=== PATIENT | female | born 1960 | race Caucasian/White ===

== ENCOUNTER 2024-07-03 17:26 | Emergency (ER) | payer OTHER ==
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
--- NOTE | 2024-07-03 18:14 | RAD REPORT ---
EXAM DESCRIPTION: CTStone Protocol - 07/03/2024 5:42 pm CLINICAL HISTORY: Abdominal distention;Flank pain COMPARISON: No comparisons TECHNIQUE: CT of the abdomen and pelvis was performed. All CT scans are performed using dose optimization technique as appropriate and may include automated exposure control or mA/KV adjustment according to patient size. FINDINGS: Lower chest: Mild circumferential thickened distal esophagus which could reflect esophagit is. Liver: Low-density left hepatic lobe lesion has benign imaging features. Other too small to character ize low-density liver lesions noted . Biliary: No biliary ductal dilatation. Stomach: No significant focal abnormality. Duodenum: No significant focal abnormality. Pancreas: No significant abnormality. Spleen: No significant abnormality. Adrenal: No suspicious lesions. Kidney/ureter: Mild right-sided hydroureteronephrosis with 4 mm stone at the right UVJ. Bilateral jesse al calculi also noted. Retroperitoneum: No retroperitoneal adenopathy. Vascular: No aneurysm. Atherosclerosis . Bowel: No significant focal abnormality. Appendectomy. Peritoneum: No ascites or free air. Bladder: Grossly unremarkable. Reproductive: No adnexal masses. Bones: No acute fracture. Grade 1 anterolisthesis of L4 on L5 . Other: n/a IMPRESSION: Mild right-sided hydroureteronephrosis secondary to a 4 mm stone at the right UVJ. Bilat eral renal calculi present.
[2024-07-03] MEDS ORDERED: ONDANSETRON 4 MG/2 ML VIAL ONE (18:27)
[2024-07-03] MEDS ORDERED: CEFTRIAXONE 1000 MG/VIAL ONE (18:27)
[2024-07-03] MEDS ORDERED: MORPHINE 4 MG/ML SYR ONE ×2 (18:27→20:06)
[2024-07-03] MEDS ORDERED: KETOROLAC 30 MG/ML INJ ONE (18:27)
[2024-07-03] MEDS ORDERED: FAMOTIDINE 20 MG/2 ML VIAL IV ONE (18:27)
[2024-07-03] MEDS ORDERED: NA CHLORIDE 0.9% 1,000 ML ONE ×2 (18:27→19:27)
[2024-07-03 19:06] LABS: Absolute Monocytes 0.2 K/uL (0.1-1.3); Absolute Neutrophil 7.3 K/uL (1.8-8.0); Basophils % 0.2 % (0-1.3); Eosinophils % 0.3 % (0-4.4); Hematocrit 42.4 % (36.0-45.0); Hemoglobin 14.2 g/dL (12.0-15.0); MCH 31.6 pg (27.0-35.0); MCHC 33.6 g/dL (32.0-36.0); MPV 6.8 fL (7.6-11.3); Monocytes % 2.7 % (3.3-12.3); Neutrophils % 84.8 % (41.7-73.7); Nucleated Red Blood Cells % 0.2 % (0-0); Platelets 303 thou/uL (152-406); RBC Red Blood Cell Count 4.51 M/uL (3.86-4.86); Red Cell Distribution Width 13.1 % (12.1-15.2)
[2024-07-03 19:18] LABS: Albumin 3.8 g/dL (3.4-5.0); Anion Gap 9.9 mEq/L (5.0-15.0); Bilirubin Total 1.3 mg/dL (0.2-1.0); Potassium 3.9 mEq/L (3.5-5.1); Protein, Total 7.8 g/dL (6.4-8.2)
[2024-07-03 19:19] LABS: Specific Gravity 1.014 (1.005-1.030); Sqamous Epithelial <5 /HPF (None Seen); Urine Bacteria None Seen /HPF (<20); Urine Bilirubin NEGATIVE (Negative); Urine Blood 2+ (Negative); Urine Clarity Extremely Turbid (Clear); Urine Color Light-Yellow (Yellow); Urine Culture Reflex Order NOT NEEDED; Urine Glucose NEGATIVE (Negative); Urine Ketones 1+ (Negative); Urine Microscopic Reflex YN ORDER UMIC; Urine Mucus Slight /HPF (None Seen); Urine Nitrite NEGATIVE (Negative); Urine Protein NEGATIVE (Negative); Urine RBC >50 /HPF (None Seen); Urine Urobilinogen Normal (Normal); Urine WBC None Seen /HPF (<5); Urine pH 7.5 (5.0-7.0)
[2024-07-03] MEDS ORDERED: TAMSULOSIN 0.4 MG SR CAP ONE (19:27)
[2024-07-03] MEDS ORDERED: CIPROFLOXACIN HCL 500 MG TAB ONE (19:32)
--- NOTE | 2024-07-03 20:39 | ER ---
Nurse's Notes [facility] Name: Melany Ricketts Age: 63 yrs Sex: Female : 1960 Arrival Date: 07/03/2024 Time: 17:26 Bed 13 Private MD: Diagnosis: Hydronephrosis with renal and ureteral calculous obstruction-4 MM RIGHT;UTI/ Urinary tract infection, site not specified Presentation: 07/03 18:01 Chief complaint: EMS states: RLQ pain, N/V and difficulty urinating that started today, ph states that she last urinated at 10 or 11 am, " Since then only a little bit will come out.". Coronavirus screen: Vaccine status: Patient reports being unvaccinated. Ebola Screen: No symptoms or risks identified at this time. Initial Sepsis Screen: Does the patient meet any 2 criteria? No. Patient's initial sepsis screen is negative. Does the patient have a suspected source of infection? No. Patient's initial sepsis screen is negative. Risk Assessment: Do you want to hurt yourself or someone else? Patient reports no desire to harm self or others. Onset of symptoms was July 03, 2024. 18:01 Method Of Arrival: EMS: [facility] 18:01 Acuity: JAVI 3 ph Triage Assessment: 18:03 General: Appears in no apparent distress. Behavior is cooperative, crying. Pain: ph Complains of pain in right lower quadrant. Neuro: Level of Consciousness is awake, alert, obeys commands, Oriented to person, place, time, situation. GI: Reports lower abdominal pain, nausea, vomiting. : Reports inability to void. Historical: - Allergies: 18:03 No Known Allergies; ph - Immunization history:: Adult Immunizations unknown. - Infectious Disease History:: Denies. - Social history:: Smoking status: Patient denies any tobacco usage or history of. Screenin:57 [facility] ED Fall Risk Assessment (Adult) History of falling in the last 3 months, ph including since admission No falls in past 3 months (0 pts) Confusion or Disorientation No (0 pts) Intoxicated or Sedated No (0 pts) Impaired Gait No (0 pts) Mobility Assist Device Used No (0 pt) Altered Elimination No (0 pt) Score/Fall Risk Level 0 - 2 = Low Risk Oriented to surroundings, Maintained a safe environment, Hourly rounding (assess needs \\T\\ fall precautionary measures) done. Abuse screen: Denies threats or abuse. Denies injuries from another. Nutritional screening: No deficits noted. Tuberculosis screening: No symptoms or risk factors identified. Assessment: 18:30 General: Appears in no apparent distress. uncomfortable, Behavior is cooperative, ph anxious, crying. Pain: Complains of pain in right lower quadrant. Neuro: Level of Consciousness is awake, alert, obeys commands, Oriented to person, place, time, situation. Cardiovascular: Capillary refill < 3 seconds in bilateral fingers Patient's skin is warm and dry. GI: Reports lower abdominal pain, nausea, vomiting. : Reports inability to void, pain in right lower quadrant(s). 19:20 General: Appears in no apparent distress. uncomfortable, Behavior is calm, cooperative. al5 Pain: Complains of pain in right lower quadrant. Neuro: Level of Consciousness is awake, alert, obeys commands, Oriented to person, place, time, situation. Cardiovascular: Patient's skin is warm and dry. Respiratory: Airway is patent Respiratory effort is even, unlabored, Respiratory pattern is regular, symmetrical. GI: Abdomen is non-distended, Reports lower abdominal pain. : Reports pain in right lower quadrant(s). EENT: No signs and/or symptoms were reported regarding the EENT system. Derm: No signs and/or symptoms reported regarding the dermatologic system. Derm: Skin is intact, Skin is pink, warm \\T\\ dry. normal. Musculoskeletal: No deficits noted. No signs and/or symptoms reported regarding the musculoskeletal system. 20:08 Reassessment: Patient appears in no apparent distress at this time. No changes from al5 previously documented assessment. Patient and/or family updated on plan of care and expected duration. Pain level reassessed. Patient is alert, oriented x 3, equal unlabored respirations, skin warm/dry/pink. pain improved initially, but came back 10/10. 20:30 Reassessment: Patient appears in no apparent distress at this time. Patient is alert, al5 oriented x 3, equal unlabored respirations, skin warm/dry/pink. pain better post morphine administeration. 20:48 General: pending discharge after fluids complete.. al5 Vital Signs: 18:01 BP 166 / 68; Pulse 84; Resp 18; Temp 97.8; Pulse Ox 99% on R/A; ph 18:58 BP 117 / 62; Pulse 88; Resp 18; Pulse Ox 98% on R/A; ph 19:00 BP 123 / 73; Pulse 79; Resp 18; Pulse Ox 100% on R/A; al5 20:00 BP 139 / 88; Pulse 92; Resp 18; Pulse Ox 100% on R/A; al5 21:00 BP 152 / 94; Pulse 87; Resp 18; Pulse Ox 99% on R/A; al5 ED Course: 17:27 Patient arrived in ED. bd 17:28 Gary Hermosillo MD is Attending Physician. bacilio 17:44 CT Stone Protocol In Process Unspecified. EDMS 18:01 She Zafar, RN is Primary Nurse. ph 18:03 Triage completed. ph 18:03 Arm band placed on Patient placed in an exam room, on a stretcher. ph 18:45 Initial lab(s) drawn, by tn, sent to lab. Urine collected: clean catch specimen, ph cloudy. Inserted saline lock: 22 gauge in right antecubital area, using aseptic technique. Blood collected. Flushed with 10 mL NS. 18:57 Patient has correct armband on for positive identification. Bed in low position. Call ph light in reach. Side rails up X2. Pulse ox on. NIBP on. Door closed. Noise minimized. Warm blanket given. Pillow given. 19:44 Primary Nurse role handed off by She Zafar, RN al5 19:44 Malka Steve, ADDIS is Primary Nurse. al5 20:39 Wade Leon MD is Referral Physician. [facility] 21:37 Provided Education on: medications, discharge follow up. al5 21:37 No provider procedures requiring assistance completed. IV discontinued, intact, al5 bleeding controlled, No redness/swelling at site. Pressure dressing applied. Administered Medications: 18:45 Drug: NS 0.9% IV 1000 ml IV at 1 bolus Per protocol; 1000 mL bolus Route: IV; Rate: 1 ph bolus; Site: right antecubital; 21:43 Follow up: Response: No adverse reaction; IV Status: Completed infusion; IV Intake: al5 1000ml 18:45 Drug: Famotidine IVP 20 mg IVP once; dilute with 10 mL 0.9% NaCl; give over 2 minutes ph Route: IVP; Site: right antecubital; 19:12 Follow up: Response: No adverse reaction ph 18:45 Drug: Ondansetron IVP 4 mg IVP once; over 2 minutes Route: IVP; Site: right antecubital;ph 19:12 Follow up: Response: No adverse reaction ph 18:45 Drug: morphine IVP or IV 4 mg IVP once over 4 mins Route: IVP; Infused Over: 4 mins; ph Site: right antecubital; 19:13 Follow up: Response: No adverse reaction ph 18:45 Drug: Rocephin IV 1 grams IV at per protocol once; Given slow IV push per pharmacy ph instructions Route: IV; Rate: per protocol; Site: right antecubital; 18:45 Drug: Ketorolac IVP 30 mg IVP once Route: IVP; Site: right antecubital; ph 19:12 Follow up: Response: No adverse reaction ph 19:41 Drug: NS 0.9% IV 1000 ml IV at 1 bolus Per protocol; 1000 mL bolus Route: IV; Rate: 1 al5 bolus; Site: right antecubital; 21:42 Follow up: IV Status: Completed infusion; IV Intake: 1000ml al5 19:42 Drug: Ciprofloxacin PO 500 mg PO once Route: PO; al5 20:05 Follow up: Response: No adverse reaction al5 19:42 Drug: Flomax PO 0.4 mg PO once Route: PO; al5 20:05 Follow up: Response: No adverse reaction al5 20:12 Drug: morphine IVP or IV 4 mg IVP once over 4 mins Route: IVP; Infused Over: 4 mins; al5 Site: right antecubital; 20:50 Follow up: Response: No adverse reaction al5 Medication: 18:57 VIS not applicable for this client. ph Intake: 21:42 IV: 1000ml; Total: 1000ml. al5 21:43 IV: 1000ml; Total: 2000ml. al5 Outcome: 20:39 Discharge ordered by MD. ribera 21:37 Discharged to home ambulatory, with friend, al5 21:37 Condition: good 21:37 Discharge instructions given to patient, Instructed on discharge instructions, follow up and referral plans. medication usage, Demonstrated understanding of instructions, follow-up care, medications, Prescriptions given X 5 22:04 Patient left the ED. al5 Signatures: Dispatcher [employer] Sujey Coon Corey, MD MD cha Hall, Patricia, RN RN ph Langhorst, Amanda, RN RN al5
--- NOTE | 2024-07-03 20:39 | EDPHYS ---
Physician Documentation [facility] Name: Melany Ricketts Age: 63 yrs Sex: Female : 1960 Arrival Date: 07/03/2024 Time: 17:26 Bed 13 Private MD: ED Physician Gary Hermosillo HPI: 07/03 19:00 This 63 yrs old Female presents to ER via EMS with complaints of right flank pain, bacilio dysuria. Historical: - Allergies: 18:03 No Known Allergies; ph - Immunization history:: Adult Immunizations unknown. - Infectious Disease History:: Denies. - Social history:: Smoking status: Patient denies any tobacco usage or history of. ROS: 19:02 Constitutional: Negative for fever, chills, and weight loss, Eyes: Negative for injury, bacilio pain, redness, and discharge, ENT: Negative for injury, pain, and discharge, Neck: Negative for injury, pain, and swelling, Cardiovascular: Negative for chest pain, palpitations, and edema, Respiratory: Negative for shortness of breath, cough, wheezing, and pleuritic chest pain, Back: Negative for injury and pain, MS/Extremity: Negative for injury and deformity, Skin: Negative for injury, rash, and discoloration, Neuro: Negative for headache, weakness, numbness, tingling, and seizure, Psych: Negative for depression, anxiety, suicide ideation, homicidal ideation, and hallucinations, Allergy/Immunology: Negative for hives, rash, and allergies, Endocrine: Negative for neck swelling, polydipsia, polyuria, polyphagia, and marked weight changes, Hematologic/Lymphatic: Negative for swollen nodes, abnormal bleeding, and unusual bruising, 19:02 Abdomen/GI: Positive for abdominal pain, abdominal cramps, of the posterior aspect of right lateral abdomen, anterior aspect of right lateral abdomen and right lower quadrant, Exam: 19:02 Constitutional: This is a well developed, well nourished patient who is awake, alert, bacilio and in no acute distress. Head/Face: Normocephalic, atraumatic. Eyes: Pupils equal round and reactive to light, extra-ocular motions intact. Lids and lashes normal. Conjunctiva and sclera are non-icteric and not injected. Cornea within normal limits. Periorbital areas with no swelling, redness, or edema. ENT: Nares patent. No nasal discharge, no septal abnormalities noted. Tympanic membranes are normal and external auditory canals are clear. Oropharynx with no redness, swelling, or masses, exudates, or evidence of obstruction, uvula midline. Mucous membranes moist. Neck: Trachea midline, no thyromegaly or masses palpated, and no cervical lymphadenopathy. Supple, full range of motion without nuchal rigidity, or vertebral point tenderness. No Meningismus. Chest/axilla: Normal chest wall appearance and motion. Nontender with no deformity. No lesions are appreciated. Cardiovascular: Regular rate and rhythm with a normal S1 and S2. No gallops, murmurs, or rubs. Normal PMI, no JVD. No pulse deficits. Respiratory: Lungs have equal breath sounds bilaterally, clear to auscultation and percussion. No rales, rhonchi or wheezes noted. No increased work of breathing, no retractions or nasal flaring. Back: No spinal tenderness. No costovertebral tenderness. Full range of motion. Female : Normal external genitalia. Skin: Warm, dry with normal turgor. Normal color with no rashes, no lesions, and no evidence of cellulitis. MS/ Extremity: Pulses equal, no cyanosis. Neurovascular intact. Full, normal range of motion. Neuro: Awake and alert, GCS 15, oriented to person, place, time, and situation. Cranial nerves II-XII grossly intact. Motor strength 5/5 in all extremities. Sensory grossly intact. Cerebellar exam normal. Normal gait. Psych: Awake, alert, with orientation to person, place and time. Behavior, mood, and affect are within normal limits. 19:02 Abdomen/GI: Inspection: abdomen appears normal, Bowel sounds: normal, Palpation: Liver: no appreciated palpable abnormalities, Hernia: not appreciated, Vital Signs: 18:01 BP 166 / 68; Pulse 84; Resp 18; Temp 97.8; Pulse Ox 99% on R/A; ph 18:58 BP 117 / 62; Pulse 88; Resp 18; Pulse Ox 98% on R/A; ph 19:00 BP 123 / 73; Pulse 79; Resp 18; Pulse Ox 100% on R/A; al5 20:00 BP 139 / 88; Pulse 92; Resp 18; Pulse Ox 100% on R/A; al5 21:00 BP 152 / 94; Pulse 87; Resp 18; Pulse Ox 99% on R/A; al5 MDM: 17:28 Patient medically screened. [facility] 19:03 Differential diagnosis: UTI, appendicitis, bowel obstruction, diverticulitis, bacilio gastritis, non-specific abd pain, pancreatitis, Pyelonephritis, Ureterolithiasis. Data reviewed: vital signs, nurses notes, EMS record, lab test result(s), radiologic studies, CT scan. Consideration of Admission/Observation Escalation of care including admission/observation considered. I considered the following discharge prescriptions or medication management in the emergency department Medications were administered in the Emergency Department. See MAR. Independent interpretation of the following test(s) in the Emergency Department CT Scan: My interpretation is CT STONE. Test considered but Not performed: CT: CT STONE 4 MM RIGHT UVJ. Historians other than the Patient: EMS: EMS AND PT WELL INFORMED. Care significantly affected by the following chronic conditions: Obesity. 07/03 17:29 Order name: CBC with Diff; Complete Time: 20:38 [facility] 07/03 17:29 Order name: CMP; Complete Time: 20:38 [facility] 07/03 17:29 Order name: Lipase; Complete Time: 20:38 [facility] 07/03 17:29 Order name: Urinalysis w/ reflexes; Complete Time: 20:38 [facility] 07/03 17:29 Order name: CT Stone Protocol; Complete Time: 18:59 [facility] 07/03 17:29 Order name: IV Saline Lock; Complete Time: 18:59 [facility] 07/03 17:29 Order name: Labs collected and sent; Complete Time: 18:59 [facility] Administered Medications: 18:45 Drug: NS 0.9% IV 1000 ml IV at 1 bolus Per protocol; 1000 mL bolus Route: IV; Rate: 1 ph bolus; Site: right antecubital; 21:43 Follow up: Response: No adverse reaction; IV Status: Completed infusion; IV Intake: al5 1000ml 18:45 Drug: Famotidine IVP 20 mg IVP once; dilute with 10 mL 0.9% NaCl; give over 2 minutes ph Route: IVP; Site: right antecubital; 19:12 Follow up: Response: No adverse reaction ph 18:45 Drug: Ondansetron IVP 4 mg IVP once; over 2 minutes Route: IVP; Site: right antecubital;ph 19:12 Follow up: Response: No adverse reaction ph 18:45 Drug: morphine IVP or IV 4 mg IVP once over 4 mins Route: IVP; Infused Over: 4 mins; ph Site: right antecubital; 19:13 Follow up: Response: No adverse reaction ph 18:45 Drug: Rocephin IV 1 grams IV at per protocol once; Given slow IV push per pharmacy ph instructions Route: IV; Rate: per protocol; Site: right antecubital; 18:45 Drug: Ketorolac IVP 30 mg IVP once Route: IVP; Site: right antecubital; ph 19:12 Follow up: Response: No adverse reaction ph 19:41 Drug: NS 0.9% IV 1000 ml IV at 1 bolus Per protocol; 1000 mL bolus Route: IV; Rate: 1 al5 bolus; Site: right antecubital; 21:42 Follow up: IV Status: Completed infusion; IV Intake: 1000ml al5 19:42 Drug: Ciprofloxacin PO 500 mg PO once Route: PO; al5 20:05 Follow up: Response: No adverse reaction al5 19:42 Drug: Flomax PO 0.4 mg PO once Route: PO; al5 20:05 Follow up: Response: No adverse reaction al5 20:12 Drug: morphine IVP or IV 4 mg IVP once over 4 mins Route: IVP; Infused Over: 4 mins; al5 Site: right antecubital; 20:50 Follow up: Response: No adverse reaction al5 Disposition Summary: 07/03/24 20:39 Discharge Ordered Notes: Location: Home bacilio Problem: new bacilio Symptoms: have improved bacilio Condition: Stable bacilio Diagnosis - Hydronephrosis with renal and ureteral calculous obstruction - 4 MM RIGHT bacilio - UTI/ Urinary tract infection, site not specified bacilio Followup: bacilio - With: Private Physician - When: 2 - 3 days - Reason: Recheck today's complaints, Continuance of care, Re-evaluation by your physician Followup: bacilio - With: Wade Leon MD - When: 2 - 3 days - Reason: Recheck today's complaints, Continuance of care, Re-evaluation by your physician Discharge Instructions: - Discharge Summary Sheet bacilio - Kidney Stones bacilio - Urinary Tract Infection, Adult bacilio - Kidney Stones, [id number] bacilio - Urinary Tract Infection, Adult, [id number] bacilio - Hydronephrosis bacilio - Dietary Guidelines to Help Prevent Kidney Stones bacilio Forms: - Medication Reconciliation Form bacilio - Antibiotic Education bacilio - Prescription Opioid Use bacilio - Patient Portal Instructions [facility] - Leadership Thank You Letter [facility] Prescriptions: - Flomax 0.4 mg Oral capsule - take 1 capsule ORAL route every evening; 30 capsule; Refills: 0, Product [facility] Selection Permitted - acetaminophen-codeine 300-30 mg Oral tablet - take 2 tablet ORAL route every 6 hours; 20 tablet; Refills: 0, Product bacilio Selection Permitted - ketorolac 10 mg Oral tablet - take 1 tablet ORAL route every 6 hours for 3 days; 12 tablet; Refills: 0, [facility] Product Selection Permitted - ondansetron 4 mg Oral Tablet,disintegrating - take 1 tablet ORAL route every 6-8 hours for 5 days as needed for nausea and bacilio vomiting; 20 tablet; Refills: 0, Product Selection Permitted - Cipro 500 mg Oral Tablet - take 1 tablet ORAL route every 12 hours for 7 days; 14 tablet; Refills: 0, [facility] Product Selection Permitted Signatures: Dispatcher [employer] Gary Ge MD MD cha Hall, Patricia, RN RN Malka Aranda RN RN al5
[2024-07-03 22:24] VITALS: TEMP 97.8
[2024-07-03 22:32] VITALS: BP 152/94; O2SAT 99
== END 2024-07-03 22:04 | disposition home or self-care (01) ==
LOC: ER 17:26
DX: N13.2 Hydronephrosis with renal and ureteral calculous obstruction (principal); N39.0 Urinary tract infection, site not specified
CPT/HCPCS: 85025; 81001; 36415; 83690; 80053; 76377; 74176; J2405; J7030 ×2; J0696